=== PATIENT | male | born 1960 | race Caucasian/White ===

== ENCOUNTER 2022-10-09 16:20 | Emergency (ER) | payer OTHER ==
[2022-10-09] MEDS ORDERED: cefTAZidime Pentahydrate 1 GM in Dextrose 5% in Water 100 ML IV ONE ×2 (17:18)
[2022-10-09] MEDS ORDERED: VANCOmycin 1.5 GM/300 ML 1.5 GM in Premix Bag 1 BAG IV ONE (17:30)
== END 2022-10-09 21:30 | disposition home or self-care (01) ==
LOC: MW.ED 16:20
DX: H05.011 Cellulitis of right orbit (principal)
CPT/HCPCS: 96365; 96366; 96367; 99283; J0713; J3370; J7060